=== PATIENT | female | born 1950 | race Caucasian/White ===

== ENCOUNTER → 2021-11-15 | Day surgery (SDC) | payer MEDICARE, OTHER ==
[~2021-11-15] VITALS: Ht 154.9 cm; Wt 40.4 kg
[~2021-11-15] MED LIST: AMBIEN5 MG PO; ASPIRIN EC81 MG PO; EXFORGE 10-1601 EACH PO; EXFORGE 5-3201 EACH PO; NEURONTIN400 MG PO; OMEPRAZOLE40 MG PO; ONDANSETRON ODT4 MG PO; VITAMIN B-121000 MC1 PO; VITAMIN D310 MC3 PO
[2021-11-15 07:51] LABS: HGB 14.4 g/dl (12.5-16.0); MCH 30.1 pg (25.0-31.0); MCV 93.9 fL (78.0-100.0); MPV 10.1 fL (6.0-9.5); RBC 4.79 M/uL (4.20-5.40); RDW 13.9 % (11.5-14.0)
[2021-11-15 08:13] LABS: BILIRUBIN - TOTAL 0.3 mg/dL (0.2-1.0); BUN/CREAT RATIO (CALC) 23.6 RATIO; CREATININE 0.89 mg/dL (0.51-0.95); GLOBULIN (CALCULATION) 3.3 g/dL; TOTAL PROTEIN 7.3 g/dL (6.4-8.2)
== END | disposition home or self-care (01) ==
LOC: FAS 07:17
PROVIDERS: Surgery
DX: K58.0 Irritable bowel syndrome with diarrhea (principal); K57.30 Diverticulosis of large intestine without perforation or abscess without bleeding; Q43.9 Congenital malformation of intestine, unspecified; Z98.51 Tubal ligation status; Z90.49 Acquired absence of other specified parts of digestive tract; Z79.82 Long term (current) use of aspirin; K21.9 Gastro-esophageal reflux disease without esophagitis; G35 Multiple sclerosis; I10 Essential (primary) hypertension
CPT/HCPCS: 36415; 80053; J1610; J2704; J7120